=== PATIENT | male | born 1970 | race Caucasian/White ===

== ENCOUNTER 2023-10-28 13:37 | Emergency (ER) | payer SELFPAY ==
[2023-10-28 13:44] VITALS: BP 121/83
[2023-10-28 13:52] VITALS: BP 121/83; BMI 15.6
[2023-10-28 14:00] VITALS: BP 118/85
[2023-10-28 14:18] LABS: % Basophils 0.6 % (0-2); % Eosinophils 0.1 % (0-6); % Immature Granulocytes 0.5 % (0-0.5); % Lymphocytes 8.5 % (20.5-51.1); % Monocytes 5.3 % (1.7-9.3); Absolute Basophils 0.1 10^3/uL (0-0.2); Absolute Immature Granulocytes 0.1 10^3/uL (0-0.05); Absolute Lymphocytes 1.3 10^3/uL (1.2-3.4); Absolute Monocytes 0.8 10^3/uL (0.1-0.6); Hematocrit 42.5 % (39.0-52.0); Mean Corp Hgb Conc. 35.3 g/dL (33.0-37.0); Mean Corpuscular Hgb 32.3 pg (27.0-31.0); Mean Corpuscular Volume 91.6 fL (80.0-94.0); Nucleated Red Blood Cells % 0 % (-); Platelet Count 269 10^3/uL (130-400); Red Blood Cell Count 4.64 10^6/uL (4.70-6.10); Red Cell Dist. Width 15.1 % (11.5-14.5); White Blood Cell Count 15.3 10^3/uL (4.8-10.8)
[2023-10-28 14:39] LABS: Blood Urea Nitrogen 13 mg/dl (9-20); Calcium 9.4 mg/dl (8.4-10.2); Carbon Dioxide 26 mmol/L (22-30); Chloride 107 mmol/L (98-107); Estimated Creatinine Clearance 65 ml/min; Glucose 88 mg/dl (70-99); Potassium 4.2 mmol/L (3.5-5.1); Sodium 140 mmol/L (135-145); eGFR > 60.00
[2023-10-28 14:40] LABS: Alcohol None Detected
[2023-10-28 15:00] VITALS: BP 109/75
[2023-10-28] MEDS: ADACEL 0.5 ML IM (15:33)
[2023-10-28 16:00] VITALS: BP 113/80
[2023-10-28 16:03] LABS: COVID-19 Antigen Negative (Negative)
[2023-10-28 16:04] LABS: Amphetamines Negative (Negative); Barbiturates Negative (Negative); Benzodiazepines Negative (Negative); Buprenorphine Negative (Negative); Cocaine Negative (Negative); Marijuana Positive (Negative); Methadone Negative (Negative); Methamphetamines Negative (Negative); Opiates Negative (Negative); Phencyclidine Negative (Negative); Tricyclic Antidepressants Negative (Negative)
--- NOTE | 2023-10-28 17:07 | ED.GENMED ---
History of Present Illness
General
Chief Complaint: Crisis Evaluation
Source: patient
Exam Limitations: none
Time Seen by Provider: 10/28/23 14:59
Nursing documentation reviewed up to this point in time: agreed with
Travel History
Have you had any contact with someone who has COVID-19?: No
Do you have any symptoms of coronavirus? Fever > 100 degrees, chills, cough, shortness of breath, sore throat, loss of taste or smell, muscle aches, or headache?: No
History of Present Illness
History of Present Illness:
pt is a 52 y/o M with no reported PMH
here after being called by police for being on someone's property and then fled police
when he was apparently apprehended, he was saying things about hearing from God so they brought him here
pt is not 302 by police
he doesn't believe he has a problem - he says that he can speak to God through the source[place] that is energy from the solar system that we can all see, 'you would think they are clouds' but they are not.
he says that this is something he's thought fro a long time but he doesn't tell people because they don't believe him
he uses marijuana but no other drugs
no headache, vomiting, head injury, chest pain , shortness of breath
no recent infectin
he was running without shoes and has a cut on his left foot, tetanus is not UTD
no active bleeding
no other injuries
pt syas he was overheated from running from the poice
Past History
Social History
Tobacco: Smoker
Alcohol: None
Drug: Marijuana
Review of Systems
Review of Systems
Allergies reviewed?: Yes
All Other Systems: Not applicable
Phy Exam
Physical Exam
Physical Exam:
GENERAL: Alert , in no apparent distress, thin
EYE: pupils equal and reactive
NECK: Supple
ENT: o/p clr, mmm.
CARDIAC: Regular rate and rhythm .no edema
LUNGS: Clear breath sounds bilaterally, no acute respiratory distress, no wheezes/rales/rhonchi
ABDOMEN: Soft, without focal tenderness, no r/g, no cvat, normal bowel sounds
NEUROLOGICAL: Alert and oriented, no focal neuro deficits
SKIN: Warm and dry, 2 cm linear laceration bottom of left foot MTP region 1st;
MUSCULOSKELETAL: No edema, well perfused. neg leslie's sign full rom of ofot
PSYCH: pressured speech, delusions islam, no audtiroy hallucinations, no SI,no HI
cooperative
Course
Orders/Labs/Results
Orders:
Orders
10/28/23 14:00
EKG [Electrocardiogram (*1)] Urgent
Reason for Study: Tachycardia
10/28/23 14:01
EKG- Treatment ONCE
10/28/23 14:06
Alcohol Urgent
Basic Metabolic Panel Urgent
Complete Blood Count/With Diff Urgent
10/28/23 14:09
Crisis Consult Urgent
Reason for Consult: found roaming someone elses property, ran from police
10/28/23 15:18
Tetanus/Diphth/Acelpertussis [Adacel] 0.5 ml IM .ONCE ONE
10/28/23 15:40
COVID-19 Antigen Urgent
Source: Nasal Swab
Urinalysis Reflex To Culture Urgent
Date Specimen was Collected: 10/28/23
Time Specimen was Collected: 15:31
Comment: ADD ON
Urine Drug Abuse Screen Urgent
Date Specimen was Collected: 10/28/23
Time Specimen was Collected: 15:31
10/28/23 17:10
CT Head W/o Iv Contrast Urgent
Comment:
Reason For Exam: change in mental status
10/28/23 17:47
Add On- LAB Urgent
Tests Added?: UA reflex to UC
10/28/23 19:37
Olanzapine [Zyprexa] 5 mg PO NOW STA
10/28/23 20:00
Olanzapine [Zyprexa] 5 mg PO BID
Abnormal Lab Results
10/28/23 10/28/23
14:06 15:40
WBC 15.3 H 10^3/uL
(4.8-10.8)
RBC 4.64 L 10^6/uL
(4.70-6.10)
MCH 32.3 H pg
(27.0-31.0)
RDW 15.1 H %
(11.5-14.5)
Abs Immat Gran (auto) 0.1 H 10^3/uL
(0-0.05)
Absolute Neuts (auto) 13.0 H 10^3/uL
(1.4-6.5)
Absolute Monos (auto) 0.8 H 10^3/uL
(0.1-0.6)
Neutrophils % 85.0 H %
(42.2-75.2)
Lymphocytes % 8.5 L %
(20.5-51.1)
Urine Ketones 1+ A
(Negative)
Urine Bilirubin 1+ A
(Negative)
U Marijuana (THC) Screen Positive H
(Negative)
10/28/23 14:06
10/28/23 14:06
Vital Signs
Initial and Last Documented VS:
Initial Vital Signs
Pulse Resp BP
106 14 121/83
10/28/23 13:44 10/28/23 13:44 10/28/23 13:44
Last Documented Vital Signs
Temp Pulse Resp BP Pulse Ox
98.0 F 98 18 118/76 99
10/28/23 13:52 10/28/23 20:10 10/28/23 20:10 10/28/23 20:10 10/28/23 20:10
MDM/Problems Addressed
Differential Diagnosis Includes:
psychosis, infection, brain tumor, drug abuse
MDM/Problems Addressed:
52 y.o M apparently previously healthy
picked up by police for being in someone's yard and then fled police
pt had islam delusions stating that he communicates with God through the source in [place] and he needs to rid the world of the devil
according to his mother whom i spoke with on the phone, the patient has not been going to work, has had weight loss, isn't eating or sleeping much
he has not had any trauma
he deneis drug abuse but does admit to marijuana
pt apparently used to weight 140 but now weighs aout 100 pounds
he appears thin, has pressured speech, speaks about communicating with God through the [place] where he can see the solar system
he is clearly exhibiting psychosis
unclear cause
,mild leukocytosis unclear origin
head ct neg
neuro intact
small laceration plantar foot that will be sterristriped and bandaid
tetanus updated
otherwise medically cleared
crisis evaluation obtained, family filed [id number]
[id number] upheld
1914 - telepsych assessment completed
recommends inpatient involuntary admission psychiatric hospital
zyprexa 5 mg bid ordered per telepsych rec
*Critical Care Note
Total Time (30-74mins, 75-104mins- exclusive of procedures): Not Applicable
ED Attending Note
-
Portions of this chart may have been created with voice recognition software.� Occasional wrong word or��sound alike� substitutions may have occurred due to the inherent limitations of voice recognition software.
Discharge Plan
Departure
Patient Disposition: Psych Facility
Discharge Problem:
Psychosis
Instructions: Acute Psychosis (DC)
Referrals:
UNKNOWN,NO INTERVIEW [Family Provider] -
Activity Restrictions/Additional Instructions:
YOU WILL BE TRANSFERRED TO AN INPATIENT PSYCHIATRIC FACILITY TO BE TREATED
Interventions
Interventions:
*Risk Screen - Suicide Last Done: 10/28/23 13:52
*General Assessment Last Done: 10/28/23 13:52
*Neglect/Abuse Screening Last Done: 10/28/23 13:52
ED- Fall Risk Assessment Last Done: 10/28/23 13:52
*ED COVID-19 Vaccine History Last Done: 10/28/23 13:52
*Nursing Disposition Last Done: 10/29/23 07:39
ED-Psychological Assessment Last Done: 10/28/23 13:52
Discharge Date and Time
Discharge Date/Time: 10/29/23 07:30
Print Language: MALIAN
[2023-10-28 18:13] LABS: Urine Albumin Trace (Neg - Trace); Urine Bilirubin 1+ (Negative); Urine Character Very Cloudy (Clear); Urine Color Yellow; Urine Glucose Negative (Negative); Urine Ketone 1+ (Negative); Urine Leukocyte Negative (Negative); Urine Nitrite Negative (Negative); Urine Occult Blood Negative (Negative); Urine Specific Gravity 1.025 (<1.030); Urine Urobilinogen 1+ (Neg - 1+)
[2023-10-28] MEDS: ZYPREXA 5 MG PO (19:48)
[2023-10-28 20:10] VITALS: BP 118/76
== END 2023-10-29 07:30 ==
LOC: EMR 13:37
PROVIDERS: Emergency Medicine; Physician Assistant; EMERGENCY PHYSICIAN Emergency Medicine
DX: F23 Brief psychotic disorder (principal); F12.90 Cannabis use, unspecified, uncomplicated; S91.312A Laceration without foreign body, left foot, initial encounter; X58.XXXA Exposure to other specified factors, initial encounter; Z11.52 Encounter for screening for COVID-19; F22 Delusional disorders; R63.4 Abnormal weight loss; Z68.1 Body mass index [BMI] 19.9 or less, adult; Z65.3 Problems related to other legal circumstances; F17.200 Nicotine dependence, unspecified, uncomplicated
CPT/HCPCS: 99285; 90471; 70450; 80048; 80306; 81003; 82077; 85025; 87811; 90715; 93005